=== PATIENT | female | born 1935 | race Caucasian/White ===

== ENCOUNTER 2017-04-21 16:56 | Inpatient (IN) | payer OTHER ==
[~2017-04-21] VITALS: Ht 170.2 cm; Wt 59.7 kg
--- NOTE | ~2017-04-21 | EKG ---
[address] [address] ELECTROCARDIOGRAM REPORT Name: RITA HODGE Room #: PRE [facility]#: [id number] Admission: Attend Phys: Discharge: Date of : 33 Report #: [id number] THIS REPORT FOR: //name// [facility] ED Test Date: 2017-04-21 Test Time: 17:22:52 Pat Name: RITA HODGE Department: Room: Gender: F Human Resources Hr Generalist: PATI : 1935 Requested By: Kavitha Rankin Order Number: [id number] MD: Bj Shea Measurements Intervals [place] Rate: 60 P: KS: 190 QRS: -48 QRSD: 124 T: QT: 491 QTc: 491 Interpretive Statements Atrial-paced rhythm Left bundle branch block No previous ECG available for comparison Electronically Signed On 04-21-2017 17:42:55 SPLITTER OPERATOR by Bj Shea [email or web address] <ELECTRONICALLY SIGNED> By: Bj Shea MD, [facility] 04/21/17 1742 1722 1722 Bj Shea MD, FACC /EPI
--- NOTE | ~2017-04-21 | HC ---
[facility] [place] [address] CONSULTATION Name: RITA HODGE Nellie Room #: 362-P ADM IN M.R.#: [id number] Admission: 04/21/17 Attend Phys: Lori Jackson MD Discharge: Date of : 33 Report #: [id number] THIS REPORT FOR: //name// CC: Lori Elizabeth DATE OF SERVICE: 04/25/2017 REFERRING PROVIDER: Dr. Jackson. REASON FOR CONSULTATION: Hypoxemic respiratory failure, altered mental status. HISTORY OF PRESENT ILLNESS: Our group was asked to evaluate the patient in consultation this evening while hospitalized at [facility]. Discussed with family who is at the bedside, reasonable historians as well as review of records, discussion with nursing. The patient unable to really give any history. An 81-year-old woman without any real past pulmonary history what appears to be an elevated right hemidiaphragm, but family is not aware of any other prior pulmonary problems. Has some underlying dementia, but is able to do some basic activities of daily living, but has not been the same since she had a perforated bowel with ileostomy in 2014, has been undergoing off and on different kinds of rehabilitative care with inpatient rehab, however, has been becoming more weak at home, presented to the Emergency Department, was found to have Klebsiella UTI, left lower lobe infiltrate consistent with pneumonia and some change in mentation, possibly even hallucinations. The patient underwent a lumbar puncture, which was unrevealing, but has had some decline in her oxygen saturations and subsequently on noninvasive positive pressure ventilation. She has some loose cough noted even at the bedside during my interview. ALLERGIES: Include HYDRALAZINE, SULFASALAZINE, TETRACYCLINE, METHOTREXATE, CODEINE. PAST MEDICAL HISTORY: 1. History of rheumatoid arthritis. 2. Diabetes mellitus type 2. 3. Hypertension. 4. Dementia. 5. Gastroesophageal reflux disease. 6. History of "blood clot" in the right lower extremity associated with her surgical intervention for perforated bowel. Subsequently with a right lower extremity [id number] amputation. The patient able to ambulate some with prosthesis, typically in a wheelchair. 7. Chronic renal insufficiency. 8. Hyponatremia. 9. Hypothyroidism. 10. History of congestive heart failure, although echocardiogram this admission [address] [address] CONSULTATION Name: RITA HODGE Nellie Room #: 362-[facility] IN ..#: [id number] Admission: 04/21/17 Attend Phys: Lori Jackson MD Discharge: Date of : 33 Report #: [id number] looks reasonably good. INPATIENT MEDICATIONS CURRENTLY: 1. Albuterol. 2. Azithromycin. 3. Aspirin. 4. Carvedilol. 5. Celexa. 6. Cholecalciferol. 7. Cyanocobalamin. 8. Insulin sliding scale. 9. Synthroid. 10. Multivitamin. 11. Zofran. 12. Tamiflu. 13. Zosyn. 14. Bicarbonate tablets. 15. Warfarin. 16. Ultram. SOCIAL HISTORY: Currently lives with . FAMILY HISTORY: Unobtainable from the patient. REVIEW OF SYSTEMS: Otherwise, unobtainable from the patient due to current neurologic status. PHYSICAL EXAMINATION: VITAL SIGNS: The patient is afebrile. Pulse 70s, respiratory rate 24, blood pressure 114/49. GENERAL: An elderly woman on BiPAP, poorly arousable. NECK: Supple, no lymphadenopathy. Right IJ triple lumen catheter in place. LUNGS: Markedly diminished at right base, some left basilar crackles, some coarse rhonchi noted. CARDIOVASCULAR: Heart was regular. I could not appreciate any murmurs. ABDOMEN: Soft, nontender. Ostomy was pink. EXTREMITIES: Revealed right AKA and 1+ left lower extremity edema. LABORATORY DATA: Arterial blood gas on BiPAP /, FiO2 100% revealed pH 7.30, pCO2 of 44, pO2 of 180, bicarbonate 21, lactate 2.18. White blood cell count 13,000, hemoglobin 7.6, hematocrit 24, platelet count 153. MCV is elevated at 103. INR is 1.2. Sodium 149, potassium 3.5, chloride 116, bicarbonate 23, BUN 29, creatinine 2.6, glucose 102, albumin 1.7. Chest x-ray as described in HPI. IMPRESSION: 1. Acute hypercapnic and hypoxemic respiratory failure, [place] [address] CONSULTATION Name: RITA HODGE Nellie Room #: 362-P [facility] IN M.R.#: [id number] Admission: 04/21/17 Attend Phys: Lori Jackson MD Discharge: Date of : 33 Report #: [id number] include likely diaphragm, paralysis, possible right pleural effusion, left lower lobe infiltrate consistent with pneumonia, possible hypoventilatory syndrome associated with underlying mental status. 2. Probable right hemidiaphragm, paralysis with possible pleural effusion. 3. Pneumonia. Antibiotics per Infectious Disease Service. 4. Altered mental status. 5. History of hypothyroidism, although TSH extremely low on this admission. 6. History of rheumatoid arthritis. 7. Hypernatremia. 8. Chronic renal insufficiency. SUGGEST: 1. The patient's tube feeds are on hold. We will start D5W for free water. 2. Continue with BiPAP. 3. Follow up arterial blood gas in a.m. 4. Check free T4. 5. Antibiotics per Infectious Disease Service for UTI, pneumonia. 6. CT scan of the chest to further evaluate findings on chest radiograph. 7. Bronchodilators. 8. Low dose systemic steroids with taper. 9. Avoid sedating medications. 10. Consider further workup of anemia. 11. We will follow up along. Thank you for requesting our suggestions. Discussed at length with the family and nursing at the patient's bedside. <ELECTRONICALLY SIGNED> By: Daniel Arevalo MD 04/29/17 1823 0011 1458 Daniel Arevalo MD /nt
--- NOTE | ~2017-04-21 | 2DMMODE ---
[address] [place] [address] 2 D/M-MODE ECHOCARDIOGRAM Name: RITA HODGE Room #: 362-P [facility] IN .R.#: [id number] Admission: 04/21/17 Attend Phys: Lori Jackson Discharge: Date of : 31 Date of Service: 04/22/17 1131 Report #: [id number] THIS REPORT FOR: //name// APPROVED REPORT Study performed: 04/22/2017 10:23:06 EXAM: Comprehensive 2D, Doppler, and color-flow Echocardiogram Patient Location: Bedside Room #: 362 Status: routine BSA: 1.69 HR: 73 bpm BP: 141/64 mmHg Other Information Study Quality: Fair Indications Congestive Heart Failure Diabetes Hypertension/HDD 2D Dimensions LVEF(%): 70.27 (>50%) IVSd: 9.61 (7-11mm) LVOT Diam: 22.34 (18-24mm) LVDd: 33.42 mm PWd: 10.25 (7-11mm) Ascending Ao: 29.57 (22-36mm) LVDs: 20.48 (25-40mm) Aortic Root: 30.72 mm Castellon's LVEF: 70.27 % Aortic Valve AoV Peak George.: 1.61 m/s AO Peak Gr.: 10.37 mmHg LVOT Max P.55 mmHg LVOT Max V: 1.37 m/s EVARISTO Vmax: 3.34 cm2 Mitral Valve E/A Ratio: 0.7 MV Decel. Time: 256.81 ms MV E Max George.: 0.72 m/s MV A George.: 1.09 m/s MV PHT: 74.47 ms IVRT: 166.[address] [place] [address] 2 D/M-MODE ECHOCARDIOGRAM Name: RITA HODGE Room #: 362-P [facility].#: [id number] Admission: 04/21/17 Attend Phys: Lori Jackson Discharge: Date of : 33 Date of Service: 04/22/17 1131 Report #: [id number] Pulmonary Valve PV Peak George.: 0.95 m/s PV Peak Gr.: 3.62 mmHg Pulmonary Vein P Vein S: 0.41 m/s P Vein A: 0.25 m/s P Vein D: 0.35 m/s P Vein A Dur.: 78.4 msec P Vein S/D Ratio: 1.17 Tricuspid Valve TR Peak George.: 2.62 m/s TR Peak Gr.: 27.51 mmHg PA Pressure: 28.00 mmHg Left Ventricle The left ventricle is normal size. There is normal left ventricular wall thickness. The left ventricular systolic function is normal. The left ventricular ejection fraction is within the normal range. LVEF is 60-65%. Grade I - abnormal relaxation pattern. Right Ventricle The right ventricle is normal size. The right ventricular systolic function is normal. Pacemaker lead is present in the right ventricle. Atria The left atrium size is normal. The right atrium size is normal. Pacemaker lead is present in the right atrium. Aortic Valve The aortic valve is normal in structure. Aortic valve is calcified. No aortic regurgitation is present. There is no aortic valvular stenosis. Mitral Valve The mitral valve is normal in structure. There is mitral annular calcification. Trace mitral regurgitation. No evidence of mitral valve stenosis. Tricuspid Valve The tricuspid valve is normal in structure. There is trace tricuspid regurgitation. Estimated PAP 28 mmHg plus the right atrial pressure. There is no pulmonary hypertension. Pulmonic Valve The pulmonary valve is normal in structure. There is no pulmonic valvular regurgitation. [address] [address] 2 D/M-MODE ECHOCARDIOGRAM Name: RITA HODGE Room #: 362-P [facility] IN [facility]#: [id number] Admission: 04/21/17 Attend Phys: Lori Jackson Discharge: Date of : 33 Date of Service: 04/22/17 1131 Report #: [id number] Great Vessels The aortic root is normal in size. IVC is not well visualized. Pericardium There is no pericardial effusion. <Conclusion> The left ventricle is normal size. The left ventricular systolic function is normal. Grade I - abnormal relaxation pattern. The right ventricle is normal size. The left atrium size is normal. The right atrium size is normal. Pacemaker lead is present in the right atrium. Pacemaker lead is present in the right ventricle. Aortic valve is calcified. There is no aortic valvular stenosis. Trace mitral regurgitation. <ELECTRONICALLY SIGNED> By: Beto Montero MD 04/22/17 1131 1131 1131 Beto Montero MD /INF
--- NOTE | ~2017-04-21 | HC ---
[facility] [place] [address] CONSULTATION Name: RITA HODGE Room #: 362-P ADM IN M.R.#: [id number] Admission: 04/21/17 Attend Phys: Lori Jackson MD Discharge: Date of : 33 Report #: [id number] THIS REPORT FOR: //name// CC: Lori Elizabeth DATE OF SERVICE: 04/27/2017 CHIEF COMPLAINT: Delirium. HISTORY OF PRESENT ILLNESS: The patient is an 81-year-old female that presented on 04/21/2017 with acute delirium and hallucinations, decreased p.o. intake over a few days, diagnosed with urinary tract infection, but also found to have hyponatremia and acute renal failure as well as possible pneumonia. Unfortunately, the patient has had no recovery in her overall mental status despite attempts at treatment. The family is desiring palliative care measures at this point in time. PAST MEDICAL HISTORY: Significant for TIA, hypertension, diabetes, gastroesophageal reflux disease, rheumatoid arthritis. PAST SURGICAL HISTORY: Hysterectomy, left TKA, right above-knee amputation, history of DVT. SOCIAL HISTORY: and daughter were present for my interview today. MEDICATIONS AT HOME: Warfarin, Lasix, Coreg, demeclocycline, Celexa, Lantus, iron, levothyroxine, aspirin, pravastatin, amlodipine. ALLERGIES: CODEINE, METHOTREXATE, TETRACYCLINE, SULFA. FAMILY HISTORY: Noncontributory. REVIEW OF SYSTEMS: Unable to obtain due to medical condition. PHYSICAL EXAMINATION: VITAL SIGNS: Not taken today. Not currently being monitored. GENERAL: Appears to be in no acute distress at this time, nonresponsive to any verbal stimuli or touch stimuli. RESPIRATORY: Appears to have slowed respirations at this time anywhere from a 6-8 per minute. She appears to have no respiratory distress. Does have intact nasolabial folds, but no accessory muscle use. No tachypnea. CARDIOVASCULAR: Regular rate and rhythm without murmur. ABDOMEN: Soft, nontender to palpation. Diminished bowel sounds noted. EXTREMITIES: Diffuse edema noted. [facility] [address] [place] [address] CONSULTATION Name: AYESHARITA Nellie Room #: 362-P [facility] IN M.R.#: [id number] Admission: 04/21/17 Attend Phys: Lori Jackson MD Discharge: Date of : 33 Report #: [id number] ASSESSMENT AND PLAN: 1. Delirium. Multiple potential origins as discussed previously in HPI. This overall is contributing to a poor prognosis given that she has no p.o. intake and in the likelihood of recovery, given this and preexisting dementia, may be minimal family supportive of the palliative care approach. I believe at this point in time given her respiratory pattern that she is to stay inpatient, although I did discuss the possibility of stabilizing that transfer to an inpatient hospice facility may be appropriate. Discussed medications with both staff and with family. They are amenable to these. They appear to be controlling her symptoms well. 2. Acute hypoxic respiratory failure. Again, as above, focusing on supportive care only at this time from a standpoint of comfort. 3. Urinary tract infection. Again, as above, withdrawing all previous medications and treating better for comfort. 4. Pneumonia. As above, withdrawing antibiotics treatment for comfort at this point. I will continue to follow with this patient. Thank you very much for the consultation. <ELECTRONICALLY SIGNED> By: Nithin Guthrie DO 04/29/17 1223 1122 1736 Nithin Guthrie DO /nt
--- NOTE | ~2017-04-21 | HC ---
[facility] [place] [address] CONSULTATION Name: RITA HODGE Nellie Room #: 362-P [facility] IN ..#: [id number] Admission: 04/21/17 Attend Phys: Lori Jackson MD Discharge: Date of : 33 Report #: [id number] THIS REPORT FOR: //name// CC: Lori Elizabeth REASON FOR PRESENTATION: Altered mental status. REASON FOR CONSULTATION: Chronic kidney disease. HISTORY OF PRESENT ILLNESS: This is an 81-year-old with extensive past medical history including and not limited to chronic hyponatremia, diabetes mellitus, hypertension, chronic kidney disease for which she follows with Dr. Crowder in [facility]. Her baseline creatinine is around 2.8. She presented to the hospital with weakness, visual and auditory hallucination. She also has decreased p.o. intake with lethargy. On presentation to the Emergency Room, she was found to have an elevated creatinine at 3.8. She was admitted for further evaluation and management after she is being found to have an elevated INR at 9.6. I am being consulted to manage her chronic kidney disease. PAST MEDICAL HISTORY: 1. CKD stage 4. 2. Hypertension. 3. Diabetes mellitus. 4. Rheumatoid arthritis. 5. Chronic hyponatremia. 6. Status post right lower extremity knee amputation. 7. Status post bowel perforation with ileostomy. FAMILY HISTORY: Hypertension. SOCIAL HISTORY: She lives with her . No drug or alcohol abuse. REVIEW OF SYSTEMS: GENERAL: No fever or chills, but significant weakness. CARDIOVASCULAR: No chest pain or palpitation. PULMONARY: No cough or hemoptysis. GASTROINTESTINAL: As per the history of present illness. GENITOURINARY: As per the history of present illness. MUSCULOSKELETAL: Post-amputation on the right side. SKIN: No rash or ulcerations. MEDICATIONS: The patient's medications include the followin. Warfarin. 2. Carvedilol. 3. Amlodipine. 4. Furosemide. [address] [address] CONSULTATION Name: RITA HODGE Nellie Room #: 362-P [facility] IN [facility].#: [id number] Admission: 04/21/17 Attend Phys: Lori Jackson MD Discharge: Date of : 33 Report #: [id number] 5. Demeclocycline. 6. Levothyroxine. 7. Pravastatin. PHYSICAL EXAMINATION: GENERAL: She is alert, oriented, back to baseline. VITAL SIGNS: Blood pressure 138/75. HEAD AND NECK: No jugular venous distention, no bruit, no thyromegaly. CHEST: Clear to auscultation bilaterally. CARDIOVASCULAR: No rub detected. ABDOMEN: Soft, nontender with ostomy bags. LOWER EXTREMITIES: Right below knee amputation. LABORATORY VALUES: Reviewed. TSH is low at 0.67. ALT and AST were mildly elevated. Creatinine is 2.8. Chest x-ray reviewed. ASSESSMENT, IMPRESSION, PLAN: 1. Chronic kidney disease. 2. Chronic hyponatremia. 3. Diabetes mellitus. 4. Hypertension. 5. Status post colostomy and ileostomy. 6. Status post right below knee amputation. The patient seems to be at her baseline from the kidney perspective. She sees Dr. Crowder as an outpatient and there is no need for any further evaluation. She had some decreased p.o. intake contributing to her worsening kidney function; however, her creatinine is back to her baseline, which is around 2.8 as an outpatient. She is maintained on sodium bicarb for her acidosis. The blood pressure seems to be acceptable. If the patient is able to take p.o., it is okay to discontinue normal saline today and advance diet as tolerated. <ELECTRONICALLY SIGNED> By: Ana Giron MD 04/26/17 1505 0831 1316 Ana Giron MD /nt
--- NOTE | ~2017-04-21 | H ---
[facility] [place] [address] HISTORY AND PHYSICAL Name: RITA HODGE Nellie Room #: 362-P [facility] IN M.R.#: [id number] Admission: 04/21/17 Attend Phys: Lori Jackson MD Discharge: Date of : 33 Report #: [id number] THIS REPORT FOR: //name// CC: Lori Elizabeth DATE OF SERVICE: 04/21/2017 CHIEF COMPLAINT: Altered mental status, hallucinations. HISTORY OF PRESENT ILLNESS: The patient is an 81-year-old female with very complicated past medical history who was brought to the hospital by her for a few days' duration of hallucinations, lethargy and decreased p.o. intake. The patient apparently has had visual and auditory hallucinations for last few days. The patient was in her usual state of health prior. The patient's states that the patient's mobility is impaired due to right lower extremity amputation. She was also recently diagnosed with dementia, but she is usually alert, and able to feed herself. She also is able to conduct a conversation. In the Emergency Room, the patient's evaluation revealed creatinine of 3.2, which is higher than her baseline of 2.5. Her INR is 9.6. Her hemoglobin is stable, as well as her vital signs. CT of the brain showed no bleeding. The patient does not have any active bleeding. When I am seeing the patient, she is quite lethargic, but she is able to open her eyes on verbal stimuli. She tries to follow commands. PAST MEDICAL HISTORY: 1. Diabetes mellitus, type 2. 2. Rheumatoid arthritis. 3. Hypertension. 4. GERD. 5. History of DVT, on chronic anticoagulation. 6. Chronic kidney disease, stage 4. 7. Left knee replacement. 8. Right lower extremity above-knee amputation due to a "blood clot," details not specified. 9. Chronic hyponatremia, details not specified, treated with demeclocycline. 10. Hypothyroidism. 11. Congestive heart failure, no details provided. 12. Dementia, reportedly mild. 13. Bowel perforation, status post partial colectomy and chronic ileostomy. HOME MEDICATIONS: Extensive list is reviewed, and documented in the patient's chart. [address] [address] HISTORY AND PHYSICAL Name: RITA HODGE Room #: 362-P [facility] IN ..#: [id number] Admission: 04/21/17 Attend Phys: Lori Jackson MD Discharge: Date of : 33 Report #: [id number] FAMILY HISTORY: Reviewed and not pertinent to the patient's current condition. SOCIAL HISTORY: The patient lives with her . She does not smoke cigarettes and does not drink alcohol. REVIEW OF SYSTEMS: Unable to obtain due to lethargic mental status. PHYSICAL EXAMINATION: GENERAL: The patient is an elderly female, who is lethargic. She opens eyes, and tries to follow commands. VITAL SIGNS: Her blood pressure is 115/61, heart rate is 60, respirations are 16, temperature is 98.0. HEENT: Pupils are equal. Sclerae are anicteric. Oral mucosa is somewhat dry. NECK: Lymphadenopathy is not appreciated. The patient does not have carotid bruits. She has no JVD. RESPIRATORY: Chest moves symmetrically with breathing. Respiration is shallow. The patient does not have crackles. No wheezes appreciated. CARDIOVASCULAR: The patient has regular rhythm and rate. She has no murmurs, gallops or rubs. GASTROINTESTINAL: Ileostomy is present. Abdomen is soft and nondistended. She has normal bowel sounds. MUSCULOSKELETAL: The patient is status post right above-knee amputation. She has no edema, cyanosis or clubbing. NEUROLOGIC: The patient is lethargic, so full neurologic examination cannot be performed. SKIN: The patient has no palpable lymphadenopathy. LABORATORY DATA: Basic metabolic profile shows creatinine of 3.2. Electrolytes are normal. GFR is 14. INR is 9.6. CBC shows normal white count at 8.4, hemoglobin is 10.2, which is baseline per the patient's . Platelets 181. Urinalysis is still pending. CT of the brain shows no acute findings. Chest x-ray shows left basilar infiltrate versus atelectasis. On EKG, the patient has atrial paced rhythm. ASSESSMENT AND PLAN: An 81-year-old female with altered mental status, higher creatinine at baseline. Creatinine is 3.2, from 2.5 at baseline. X-ray shows left basilar infiltrate. 1. Community-acquired pneumonia, suspected based on clinical presentation and x-ray that shows left basilar infiltrate. The patient will be treated with Levaquin. 2. Acute encephalopathy, presented with hallucinations and lethargy on top of dementia, likely due to acute illness. Head CT scan is negative. Improvement is anticipated as medical condition improves. 3. Acute kidney injury and chronic kidney disease, stage IV with creatinine of [facility] [address] [place] [address] HISTORY AND PHYSICAL Name: RITA HODGE Room #: 362-P [facility] IN M.R.#: [id number] Admission: 04/21/17 Attend Phys: Lori Jackson MD Discharge: Date of : 33 Report #: [id number] 3.2. Gentle hydration, and hold Lasix. Nephrology consultation. 4. Coagulopathy due to Coumadin that is used for history of deep venous thrombosis. Reportedly, Coumadin dose has changed multiple times recently, and most current dose is 0.5 mg a day. INR is 9.6. Hemoglobin is stable, and there is no active bleeding. The patient will receive IV vitamin K, and INR will be repeated in the morning. 5. Diabetes mellitus type 2, treated with insulin Lantus, 5 units every morning, which will be continued. Sliding scale Humalog will be used for elevated blood sugars as needed. 6. Reported history of congestive heart failure, no details are provided. Obtain cardiac echo. 7. Hypothyroidism. Check TSH, and adjust levothyroxine dose as necessary. 8. Deep venous thrombosis prophylaxis. Unnecessary, the patient is already on Coumadin and has high INR. <ELECTRONICALLY SIGNED> By: Lori Jackson MD 04/22/17 1646 1937 22 Lori Jackson MD /nt
--- NOTE | ~2017-04-21 | HC ---
[place] [address] CONSULTATION Name: RITA HODGE Room #: 362-P ADM IN M.R.#: [id number] Admission: 04/21/17 Attend Phys: Lori Jackson MD Discharge: Date of : 33 Report #: [id number] THIS REPORT FOR: //name// CC: Lori Elizabeth DATE OF SERVICE: 04/23/2017 HISTORY OF PRESENT ILLNESS: This is an 81-year-old female patient who is not able to provide any reliable history at all. This patient is very confused. So, I talked to the nurses looking after this patient and I reviewed the patient's records. Most of the history I get it is from the records. This patient was admitted with hallucination. She had hallucinations in the past. It would appear that she was not drinking fluids appropriately before she came in, but her sodium was normal. Her creatinine is 2.8. It is not sure what the baseline is that in fact has improved since she came in. I do not know what the patient's baseline is, but presently the patient is severely confused. The nurses tell me it has been present all the time. REVIEW OF SYSTEMS: This patient is positive for amputation. She has been on anticoagulation, which from the record looks like is from some blood clot. She had a history of hysterectomy and TIA. I do not know what her baseline is but presently, she is very confused. She has a history of diabetes, hypertension and rheumatoid arthritis. This was her relevant 14-point review of system. PAST MEDICAL HISTORY: Positive for TIA and further history is not available. FAMILY HISTORY: Negative for early age stroke. SOCIAL HISTORY: She does not drink any alcohol. PHYSICAL EXAMINATION: NEUROLOGICAL: Indicate the patient is alert and responsive. She does not know what month it is, what date it is and she talks very little. Whenever she talks, she does not make any sense. I do not think she has any meningeal sign. She had amputation on the right side. Cranial nerve examination 2-12 was attempted, was unsuccessful, but I do not see any marked focality. VITAL SIGNS: Blood pressure is 136/88, pulse is 94 and temperature is 98.5. GENERAL: She does not appear to be having respiratory distress. LABORATORY DATA: Her white count is 11.1. Her GFR is 60. RADIOLOGICAL DATA: Her head CT scan showed atrophic changes. IMPRESSION: It is very difficult to form in this patient because I do not know her baseline and the is not here. I suspect at least part of it is [address] [address] CONSULTATION Name: RITA HODGE Room #: 362-P [facility] IN M.R.#: [id number] Admission: 04/21/17 Attend Phys: Lori Jackson MD Discharge: Date of : 33 Report #: [id number] because of encephalopathy. She also may have underlying dementia. I do not think there is any central nervous system infection, but we cannot exclude that and it is going to be very difficult to exclude because she is on anticoagulation and doing a spinal tap is going to be difficult in this patient. RECOMMENDATIONS: 1. EEG. 2. We will give her some thiamine. 3. Nurses tell me she has a pacemaker, so we will hold any MRI. 4. We will look like to this testing and then discussing with you. Thank you very much for this referral. <ELECTRONICALLY SIGNED> By: Grady Braun MD 04/24/172000 1312 2203 Grady Braun MD /nt
--- NOTE | ~2017-04-21 | HC ---
[facility] [place] [address] CONSULTATION Name: RITA HODGE Nellie Room #: 362-P ADM IN M.R.#: [id number] Admission: 04/21/17 Attend Phys: Lori Jackson MD Discharge: Date of : 33 Report #: [id number] THIS REPORT FOR: //name// CC: Loir Elizabeth TYPE OF REPORT: Infectious disease consultation. REASON FOR CONSULTATION: I was asked to evaluate concerning encephalopathy, leukocytosis, pneumonia and urinary tract infection. HISTORY OF PRESENT ILLNESS: The patient is an 81-year old with a several day history of change in mental status with lethargy and confusional state. No fever, chills or sweats. No definite cough. She was having more troubles controlling her swallowing. Did have some congestion. She does have some underlying dementia with a history of diabetes, rheumatoid arthritis, peripheral vascular disease and congestive heart failure. REVIEW OF SYSTEMS: As noted other than the decreased mental status. She has had occasional myoclonic jerking activity. She has had no complaints of chest pain. No nausea, vomiting or diarrhea. 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 No complaint of dysuria. No rashes or decubiti. ALLERGIES: CODEINE, METHOTREXATE, TETRACYCLINE, SULFASALAZINE, HYDRALAZINE and MINOCYCLINE. MEDICATIONS: As noted on her MAR, which were reviewed. She has been on Levaquin since admission. PAST MEDICAL HISTORY: Diabetes, hypertension, chronic kidney disease, rheumatoid arthritis, hyponatremia, right leg BKA and bowel perforation with an ileostomy. FAMILY HISTORY: Hypertension. SOCIAL HISTORY: Lives with her , has been undergoing outpatient rehabilitation. She does have some underlying dementia and dysphagia. She has been on nectar thickened liquids for some time now. REVIEW OF SYSTEMS: As noted above. PHYSICAL EXAMINATION: VITAL SIGNS: Afebrile and hemodynamically stable. She is on 2 liters of oxygen per nasal cannula. She has functional ileostomy. No dysuria. HEENT: She had some crusting to her eyes but was able to open her eyes on painful stimulus. She would not answer verbally at the beginning. After further examination, she did awake enough and would answer simple questions. [facility] [address] [place] [address] CONSULTATION Name: RITA HODGE Room #: 362-P [facility] IN [facility].#: [id number] Admission: 04/21/17 Attend Phys: Lori Jackson MD Discharge: Date of : 33 Report #: [id number] She complained of hurting all over. Mouth: Dentition in fair repair. NECK: Supple. LUNGS: Consolidation in the left base posteriorly. Some fine crackles in the right base. HEART: Regular, without murmur. ABDOMEN: Soft and mild diffuse tenderness. No guarding. No rebound. No focalization. No masses appreciated. RECTAL: Not performed. SKIN: Unremarkable with no decubiti. She did have some erythema to her coccyx with no breakdown of the skin. EXTREMITIES: Right AKA unremarkable. Left lower extremity unremarkable. LABORATORY STUDIES: Sodium 146, potassium 4.0, bicarbonate 20 and creatinine 2.6. AST 113, ALT 72 and alkaline phosphatase 238. Hemoglobin 8.6; platelet count 177,000 and white count 16.6. TSH 0.049. Urinalysis: WBCs and bacteria present with urine culture showing Proteus, sensitivity is pending. INR is 1.3. Blood cultures are negative to date. RADIOLOGICAL DATA: Chest x-ray, bilateral infiltrates, mostly in the bases. CT of the head was negative. IMPRESSION: An 81-year old with some mild dementia with change in mental status associated with urinary tract infection, chronic kidney disease, leukocytosis, aspiration pneumonia and mild hepatitis. I discussed with speech therapy and she did very poorly with bedside swallow. Suspect aspiration is a significant part of her current presentation. Other consideration would be ischemic change. Possibly influenza, although no fever identified. Cannot yet rule out primary central nervous system infection. This would seem less likely given her other comorbidities and likelihood of this being a toxic metabolic encephalopathy associated with some underlying dementia. The window for doing a spinal tap, however, is open at this time considering that her INR is 1.3. We will discuss further with Neurology regarding spinal tap. We will continue broad antibiotic coverage, pending these studies. RECOMMENDATION: Assess for influenza. Arrange LP if possible. Continue antibiotic coverage for aspiration pneumonia and urinary tract infection and continue full support, may be best to place a Dobbhoff for nutritional support. <ELECTRONICALLY SIGNED> By: Dominick Jaime MD 04/27/17 0907 [id number] Dominick Jaime MD /nt
--- NOTE | ~2017-04-21 | HC ---
[facility] [place] [address] CONSULTATION Name: AYESHARITA Nellie Room #: 362-P [facility] IN ..#: [id number] Admission: 04/21/17 Attend Phys: Lori Jackson MD Discharge: 04/30/17 Date of : 33 Report #: [id number] THIS REPORT FOR: //name// CC: Lori Elizabeth DATE OF SERVICE: 04/23/2017 HISTORY OF PRESENT ILLNESS: The patient is an 81-year-old white female with a prior history of some mild dementia, who is living in a community with her . She was admitted with hallucinations, lethargy, noted to have acute renal insufficiency, superimposed on chronic kidney disease. She has a left lower lobe infiltrate, likely pneumonia. She has been diagnosed with acute encephalopathy. She also had a coagulopathy with her INR up to 9.6. She was given vitamin K. notes she has had an overall decline over the past 3 weeks with significant increased functional needs at home. We are seeing her in rehabilitation medicine consultation. PAST MEDICAL HISTORY: Includes a prior right above-knee amputation, apparently for blood clots; history of chronic kidney disease; DVT, on chronic anticoagulation; CHF; bowel perforation, status post colectomy; rheumatoid arthritis; diabetes mellitus type 2; chronic hyponatremia, treated with demeclocycline. MEDICATIONS: Please see the full medication listing. FAMILY HISTORY: Noncontributory. SOCIAL HISTORY: Lives with in house. They have a stair glide and a wheelchair, no steps. The patient premorbidly had been able to transfer without any real assistance and could don her own blouse and only needed assistance with donning her pants and her bra strap which her provided. Over the last 3 weeks; however, she has had a decline and has needed much more assistance by the . REVIEW OF SYSTEMS: No current complaints of chest pain, shortness of breath or abdominal discomfort. This was somewhat limited secondary to the patient's mental status. PHYSICAL EXAMINATION: GENERAL: She is an 81-year-old white female in no obvious distress. NEUROLOGIC: She is alert. She knew she was in the hospital, although she could not name which one. She was only off by one year as far as naming the year. Facies appeared to be symmetric. She has functional range of motion of both upper extremities with strength grade 4- to 3+/5. DTRs are trace to 1. She does have significant ecchymosis of the right forearm. In her lower extremity, [address] [address] CONSULTATION Name: RITA HODGE Room #: 362-P [facility] IN ..#: [id number] Admission: 04/21/17 Attend Phys: Lori Jackson MD Discharge: 04/30/17 Date of : 33 Report #: [id number] she has right-above knee amputation. Left lower extremity, no focal calf swelling, functional range of motion with strength grade 3+/5. Tone appeared to be intact. Bed mobility has been max assist x 2. ASSESSMENT: An 81-year-old white female with the following problem list: 1. Acute toxic metabolic encephalopathy superimposed on mild premorbid dementia. 2. Left lower lobe infiltrate, likely pneumonia. 3. Urinary tract infection per UA. 4. Acute renal insufficiency superimposed on chronic kidney disease. 5. Coagulopathy due to Coumadin. 6. Chronic hyponatremia. 7. Reported history of congestive heart failure. 8. Premorbid right lower extremity above-knee amputation. PLAN: The patient has had a significant functional decline over the past 3 weeks and especially upon admission with her mental status changes. Therapy evaluations are underway and we will see what her tolerance is. The patient had been getting some outpatient therapy through [facility] prior to all this and the plan was to consider going for some acute inpatient rehabilitation, as she was not progressing very well as an outpatient. At this point, she is at a lower level and we will need to see what her tolerance level is like and proceed from there. Insurance will need to be checked regarding rehab therapy options as she further medically stabilizes. We will be glad to follow along with you. <ELECTRONICALLY SIGNED> By: Shashi Andino MD 05/22/17 1408 [id number] Shashi Andino MD /nt
[2017-04-21 16:59] VITALS: BP 115/61
[2017-04-21 18:14] LABS: ABSOLUTE NEUTROPHILS 6.6 thou/uL (1.4-8.2); BASOPHILS 0.5 % (0.0-2.0); HEMATOCRIT 30.5 % (37.0-47.0); HEMOGLOBIN 10.2 gm/dL (12.0-15.0); LYMPHOCYTES 13.1 % (24.0-44.0); MCH 33.5 pg (26.0-34.0); MCHC 33.5 g/dL (28.0-37.0); MONOCYTES 7.5 % (1.0-8.0); PLATELET COUNT 181 thou/uL (150-400); POLYS 77.9 % (36.0-66.0); RBC 3.05 mil/uL (4.20-5.00); RDW 15.7 % (10.5-14.5); WBC 8.4 thou/uL (4.0-11.0)
[2017-04-21 18:16] LABS: CALCIUM 9.5 mg/dL (8.5-10.1); CREATININE 3.2 mg/dL (0.6-1.0); POTASSIUM 3.9 mmol/L (3.5-5.1)
[2017-04-21 18:25] LABS: APTT 55.4 Seconds (24.5-32.8)
[2017-04-21 18:28] LABS: INR 9.6
[2017-04-21] MEDS ORDERED: COUMADIN 1MG TAB1 M1 PO (19:05)
[2017-04-21] MEDS ORDERED: LASIX 40 MG TAB40 M2 PO (19:06)
[2017-04-21] MEDS ORDERED: CARVEDILOL6.25 MG (19:07)
[2017-04-21] MEDS ORDERED: DEMECLOCYCLINE300 MG PO (19:08)
[2017-04-21] MEDS ORDERED: COMBIGAN EYE DR10 ML OPHTHALMIC (19:08)
[2017-04-21] MEDS ORDERED: CELEXA20 MG PO (19:08)
[2017-04-21] MEDS ORDERED: LIDOCAINE1 EACH (19:09)
[2017-04-21] MEDS ORDERED: UNICOMPLEX M TA1 TA1 PO (19:11)
[2017-04-21] MEDS ORDERED: FEOSOL325 M1 PO (19:12)
[2017-04-21] MEDS ORDERED: VITAMIN B122500 MCG (19:12)
[2017-04-21] MEDS ORDERED: LEVO-T150 MCG (19:13)
[2017-04-21] MEDS ORDERED: VITAMIN D1000 UNI1 PO (19:13)
[2017-04-21] MEDS ORDERED: ASPIR 8181 MG PO (19:14)
[2017-04-21] MEDS ORDERED: SODIUM BICARBO650 M3 PO (19:14)
[2017-04-21] MEDS ORDERED: LANTUS SOL100 UNIT/1 (19:14)
[2017-04-21] MEDS ORDERED: PRAVACHOL40 MG PO (19:15)
[2017-04-21] MEDS ORDERED: NORVASC5 MG PO (19:16)
[2017-04-21 20:18] VITALS: BP 121/59
[2017-04-21 20:26] LABS: URINE BILIRUBIN NEGATIVE (Negative); URINE BLOOD TRACE (Negative); URINE COLOR YELLOW; URINE GLUCOSE-RANDOM* NEGATIVE (Negative); URINE KETONES NEGATIVE (Negative); URINE LEUKOCYTES 3+ (Negative); URINE NITRITE NEGATIVE (Negative); URINE PROTEIN (DIPSTICK) NEGATIVE (Negative); URINE UROBILINOGEN 0.2 E.U./dl (0.2-1.0)
[2017-04-21 20:27] LABS: URINE CLARITY CLOUDY
[2017-04-21 20:28] LABS: BACTERIA >30 Many /HPF (None Seen); CRYSTALS None Seen /LPF (None Seen); SQUAMOUS 0-3 Few /LPF (0-3); URINE RBC None Seen /HPF (0-2); URINE WBC >25 Many /HPF (0-5)
[2017-04-21 20:45] VITALS: BP 128/70
[2017-04-22 04:01] VITALS: BP 141/64
[2017-04-22 05:28] LABS: ABSOLUTE NEUTROPHILS 9.3 thou/uL (1.4-8.2); BASOPHILS 0.7 % (0.0-2.0); EOSINOPHILS 0.5 % (0.0-3.0); HEMATOCRIT 34.9 % (37.0-47.0); HEMOGLOBIN 11.6 gm/dL (12.0-15.0); LYMPHOCYTES 7.4 % (24.0-44.0); MCH 33.5 pg (26.0-34.0); MCHC 33.3 g/dL (28.0-37.0); MCV 100.6 fL (80.0-100.0); MONOCYTES 4.5 % (1.0-8.0); PLATELET COUNT 208 thou/uL (150-400); POLYS 86.9 % (36.0-66.0); RBC 3.47 mil/uL (4.20-5.00); RDW 15.5 % (10.5-14.5); WBC 10.7 thou/uL (4.0-11.0)
[2017-04-22 05:42] LABS: PROTIME 25.4 Seconds (9.3-11.4)
[2017-04-22 05:43] LABS: ALBUMIN 2.1 g/dL (3.4-5.0); CALCIUM 9.6 mg/dL (8.5-10.1); CREATININE 2.8 mg/dL (0.6-1.0); POTASSIUM 3.8 mmol/L (3.5-5.1); TOTAL BILIRUBIN 0.7 mg/dL (<0.1-1.0); TOTAL PROTEIN 5.2 g/dL (6.4-8.2)
[2017-04-22 05:54] LABS: INR 2.5
[2017-04-22 09:15] VITALS: BP 138/75
[2017-04-22] MEDS ORDERED: XALATAN2.5 ML (10:45)
[2017-04-22] MEDS ORDERED: OMEPRAZOLE40 MG (10:46)
[2017-04-22] MEDS ORDERED: AMIODARONE HCL100 MG (10:47)
[2017-04-22] MEDS ORDERED: TRAMADOL 50 MG50 MG (10:48)
[2017-04-22] MEDS ORDERED: DOXEPIN 10 MG C10 MG (10:48)
[2017-04-22] MEDS ORDERED: ONDANSETRON HCL4 M2 (10:51)
[2017-04-22] MEDS ORDERED: HUMALOG100 UNIT/1 (10:52)
[2017-04-22 12:38] VITALS: BP 135/65
[2017-04-22 19:22] VITALS: BP 157/80
[2017-04-22 21:07] LABS: GLYCOHEMOGLOBIN (HGB A1C) 5.6 % (4.8-5.6)
[2017-04-23 03:20] VITALS: BP 147/61
[2017-04-23 06:28] LABS: ABSOLUTE NEUTROPHILS 9.6 thou/uL (1.4-8.2); BASOPHILS 0.1 % (0.0-2.0); HEMATOCRIT 27.8 % (37.0-47.0); LYMPHOCYTES 7.9 % (24.0-44.0); MCH 32.9 pg (26.0-34.0); MCHC 32.3 g/dL (28.0-37.0); MCV 101.8 fL (80.0-100.0); MONOCYTES 5.4 % (1.0-8.0); PLATELET COUNT 179 thou/uL (150-400); POLYS 86.6 % (36.0-66.0); RBC 2.73 mil/uL (4.20-5.00); WBC 11.1 thou/uL (4.0-11.0)
[2017-04-23 06:43] LABS: INR 1.5; PROTIME 14.8 Seconds (9.3-11.4)
[2017-04-23 06:48] LABS: ALBUMIN 1.9 g/dL (3.4-5.0); CALCIUM 9.1 mg/dL (8.5-10.1); CREATININE 2.8 mg/dL (0.6-1.0); PHOSPHORUS 3.6 mg/dL (2.5-4.9); POTASSIUM 4.1 mmol/L (3.5-5.1)
[2017-04-23 07:55] VITALS: BP 136/83
[2017-04-23 14:31] LABS: TSH 0.049 uIU/mL (0.358-3.740)
[2017-04-23 16:35] VITALS: BP 124/70
[2017-04-23 20:00] VITALS: BP 135/65
[2017-04-23 20:09] LABS: GLYCOHEMOGLOBIN (HGB A1C) 5.6 % (4.8-5.6)
[2017-04-24 04:00] VITALS: BP 140/79
[2017-04-24 07:51] VITALS: BP 133/61
[2017-04-24 10:56] LABS: ABSOLUTE NEUTROPHILS 15.2 thou/uL (1.4-8.2); BASOPHILS 0.2 % (0.0-2.0); HEMATOCRIT 26.8 % (37.0-47.0); HEMOGLOBIN 8.6 gm/dL (12.0-15.0); LYMPHOCYTES 4.6 % (24.0-44.0); MCH 33.3 pg (26.0-34.0); MCHC 32.3 g/dL (28.0-37.0); MCV 103.3 fL (80.0-100.0); MONOCYTES 3.9 % (1.0-8.0); PLATELET COUNT 177 thou/uL (150-400); POLYS 91.3 % (36.0-66.0); RBC 2.59 mil/uL (4.20-5.00); RDW 16.4 % (10.5-14.5); WBC 16.6 thou/uL (4.0-11.0)
[2017-04-24 11:05] LABS: ABSOLUTE RETIC COUNT 0.0628 10^6/uL; OBSERVED RETIC COUNT 2.35 % (0.6-2.6)
[2017-04-24 11:08] LABS: INR 1.3; PROTIME 13.6 Seconds (9.3-11.4)
[2017-04-24 11:10] LABS: CALCIUM 8.8 mg/dL (8.5-10.1); CREATININE 2.6 mg/dL (0.6-1.0); PHOSPHORUS 3.3 mg/dL (2.5-4.9)
[2017-04-24 11:12] LABS: % SATURATION 104 % (20-39); IRON 76 ug/dL (50-170); TIBC 73 ug/dL (250-450)
[2017-04-24 15:22] VITALS: BP 131/68
[2017-04-24 18:10] LABS: CSF CLARITY CLEAR; CSF COLOR COLORLESS; CSF GLUCOSE 121 mg/dL (40-70); CSF PROTEIN 44 mg/dL (15-45); CSF RBC 34 /mm3; CSF WBC 5 /mm3 (0-10); VOLUME 9 ml
[2017-04-24 18:44] VITALS: BP 102/75
[2017-04-24 20:36] VITALS: BP 97/74
[2017-04-24 22:00] VITALS: BP 127/74
[2017-04-25 04:00] VITALS: BP 125/67
[2017-04-25 05:21] LABS: ABSOLUTE NEUTROPHILS 11.4 thou/uL (1.4-8.2); BASOPHILS 0.1 % (0.0-2.0); HEMATOCRIT 23.7 % (37.0-47.0); HEMOGLOBIN 7.6 gm/dL (12.0-15.0); LYMPHOCYTES 6.2 % (24.0-44.0); MCH 33.1 pg (26.0-34.0); MCHC 32.1 g/dL (28.0-37.0); MCV 102.9 fL (80.0-100.0); MONOCYTES 6.5 % (1.0-8.0); PLATELET COUNT 153 thou/uL (150-400); POLYS 87.2 % (36.0-66.0); RBC 2.31 mil/uL (4.20-5.00); RDW 16.8 % (10.5-14.5)
[2017-04-25 05:34] LABS: INR 1.2; PROTIME 12.6 Seconds (9.3-11.4)
[2017-04-25 05:42] LABS: ALBUMIN 1.7 g/dL (3.4-5.0); CALCIUM 8.9 mg/dL (8.5-10.1); CREATININE 2.6 mg/dL (0.6-1.0); MAGNESIUM 2.5 mg/dL (1.8-2.4); POTASSIUM 3.5 mmol/L (3.5-5.1); TOTAL BILIRUBIN 0.6 mg/dL (<0.1-1.0); TOTAL PROTEIN 4.4 g/dL (6.4-8.2)
[2017-04-25 07:54] VITALS: BP 114/57
[2017-04-25 12:18] VITALS: BP 112/47
[2017-04-25 16:12] VITALS: BP 115/50
[2017-04-25 19:30] VITALS: BP 114/49
[2017-04-25 19:46] LABS: BE(vivo) -6.7 mmol/L (-2 to +3); HCO3 20.9 mmol/L (22.0-26.0); PCO2 53.3 mmHg (35.0-45.0); PO2 66.6 mmHg (80.0-100.0); pH 7.212 (7.360-7.450); sO2 88.8 % (92.0-98.0)
[2017-04-25 21:39] LABS: BE(vivo) -5.3 mmol/L (-2 to +3); HCO3 20.8 mmol/L (22.0-26.0); PCO2 43.6 mmHg (35.0-45.0); PO2 180.4 mmHg (80.0-100.0); sO2 99.1 % (92.0-98.0)
[2017-04-25 21:43] LABS: pH 7.297 (7.360-7.450)
[2017-04-26 03:53] VITALS: BP 125/55
[2017-04-26 05:15] LABS: BE(vivo) -5.8 mmol/L (-2 to +3); HCO3 20.4 mmol/L (22.0-26.0); PCO2 42.8 mmHg (35.0-45.0); PO2 105.1 mmHg (80.0-100.0); sO2 97.3 % (92.0-98.0)
[2017-04-26 05:16] LABS: pH 7.295 (7.360-7.450)
[2017-04-26 06:53] LABS: HEMATOCRIT 25.2 % (37.0-47.0); HEMOGLOBIN 8.2 gm/dL (12.0-15.0); MCH 33.5 pg (26.0-34.0); MCHC 32.5 g/dL (28.0-37.0); RBC 2.44 mil/uL (4.20-5.00); RDW 16.5 % (10.5-14.5); WBC 12.9 thou/uL (4.0-11.0)
[2017-04-26 07:03] LABS: INR 1.2
[2017-04-26 07:04] LABS: ALBUMIN 1.9 g/dL (3.4-5.0); CALCIUM 9.4 mg/dL (8.5-10.1); CREATININE 2.7 mg/dL (0.6-1.0); PHOSPHORUS 2.4 mg/dL (2.5-4.9)
[2017-04-27 09:16] LABS: HSV PCR SOURCE BLOOD
[2017-04-27 12:06] VITALS: BP 137/72
[2017-04-28 01:08] LABS: ADENOVIRUS Negative (Negative); INFLUENZA A Negative (Negative); INFLUENZA B Negative (Negative); METAPNEUMOVIRUS Negative (Negative); PARAINFLUENZA 1 Negative (Negative); PARAINFLUENZA 2 Negative (Negative); PARAINFLUENZA 3 Negative (Negative); RHINOVIRUS Negative (Negative); RSV A Negative (Negative); RSV B Negative (Negative)
[2017-04-28 19:11] LABS: HSV 1 DNA Negative (Negative); HSV 2 DNA Negative (Negative)
[2017-04-30 08:49] VITALS: BP 89/50
== END 2017-04-30 13:13 | DRG 871 ==
LOC: ER 16:56 → 3W 18:25 → EROBS 18:25 → 3W 20:32
PROVIDERS: Emergency Medicine; Hospitalist; Internal Medicine; Internal Medicine Endocrinology, Diabetes & Metabolism; Internal Medicine Pulmonary Disease; Psychiatry & Neurology Neuromuscular Medicine; Registered Nurse; Specialist
DX: A41.9 Sepsis, unspecified organism (principal); G92 Toxic encephalopathy; J96.02 Acute respiratory failure with hypercapnia; J96.01 Acute respiratory failure with hypoxia; K63.1 Perforation of intestine (nontraumatic); J18.9 Pneumonia, unspecified organism; D68.9 Coagulation defect, unspecified; N17.9 Acute kidney failure, unspecified; E87.1 Hypo-osmolality and hyponatremia; N39.0 Urinary tract infection, site not specified; E46 Unspecified protein-calorie malnutrition; I13.0 Hypertensive heart and chronic kidney disease with heart failure and stage 1 through stage 4 chronic kidney disease, or unspecified chronic kidney disease; N18.4 Chronic kidney disease, stage 4 (severe); Z96.652 Presence of left artificial knee joint; K21.9 Gastro-esophageal reflux disease without esophagitis; M06.9 Rheumatoid arthritis, unspecified; R62.7 Adult failure to thrive; I50.9 Heart failure, unspecified; F03.90 Unspecified dementia, unspecified severity, without behavioral disturbance, psychotic disturbance, mood disturbance, and anxiety; E11.22 Type 2 diabetes mellitus with diabetic chronic kidney disease; K75.9 Inflammatory liver disease, unspecified; E03.9 Hypothyroidism, unspecified; Z66 Do not resuscitate; F32.9 Major depressive disorder, single episode, unspecified; R13.10 Dysphagia, unspecified; R41.0 Disorientation, unspecified; Z79.4 Long term (current) use of insulin; Z88.2 Allergy status to sulfonamides; Z93.2 Ileostomy status; Z79.899 Other long term (current) drug therapy; Z86.73 Personal history of transient ischemic attack (TIA), and cerebral infarction without residual deficits; Z90.710 Acquired absence of both cervix and uterus; Z88.8 Allergy status to other drugs, medicaments and biological substances; Z79.01 Long term (current) use of anticoagulants; Z82.49 Family history of ischemic heart disease and other diseases of the circulatory system; Z93.3 Colostomy status; Z89.511 Acquired absence of right leg below knee; Z86.718 Personal history of other venous thrombosis and embolism; Z88.6 Allergy status to analgesic agent; Z68.20 Body mass index [BMI] 20.0-20.9, adult; Z51.5 Encounter for palliative care
CPT/HCPCS: 10779; 10879